=== PATIENT | female | born 1990 | race African-American/Black ===

== ENCOUNTER 2019-05-21 13:40 | Emergency (ER) | payer MEDICAID ==
[~2019-05-21] VITALS: Ht 177.8 cm; Wt 95.0 kg
[2019-05-21] MEDS ORDERED: DEXAMETHASONE 10 MG/ML VIAL IV ONE (16:45)
[2019-05-21] MEDS ORDERED: KETOROLAC 60MG/2ML VIAL IM ONE (16:45)
[2019-05-21 16:48] LABS: CLARITY URINE CLOUDY (CLEAR); COLOR URINE DARK YELLOW (YELLOW); KETONES URINE 1+ (NEGATIVE); LEUKOCYTE ESTERASE URINE NEGATIVE (NEGATIVE); NITRITE URINE NEGATIVE (NEGATIVE); OCCULT BLOOD URINE NEGATIVE (NEGATIVE); PROTEIN URINE TRACE (NEGATIVE); SPECIFIC GRAVITY URINE 1.028 (1.005-1.030)
[2019-05-21 18:14] VITALS: BP 114/65
== END 2019-05-21 18:15 | disposition home or self-care (01) ==
LOC: ER 13:40
DX: N39.0 Urinary tract infection, site not specified (principal); J03.91 Acute recurrent tonsillitis, unspecified
CPT/HCPCS: 81003; 81025; 87070; 87430; 96372; 96374; 99283; J1100; J1885

== ENCOUNTER 2020-03-30 09:59 | Emergency (ER) | payer MEDICAID ==
[~2020-03-30] VITALS: Ht 175.3 cm; Wt 82.0 kg
[2020-03-30] MEDS ORDERED: IBUPROFEN 800MG TABLET PO ONE (10:30)
[2020-03-30 11:33] VITALS: BP 101/61
== END 2020-03-30 11:39 | disposition home or self-care (01) ==
LOC: ER 10:16
DX: S16.1XXA Strain of muscle, fascia and tendon at neck level, initial encounter (principal); S39.012A Strain of muscle, fascia and tendon of lower back, initial encounter; S70.01XA Contusion of right hip, initial encounter; F12.10 Cannabis abuse, uncomplicated; Z88.6 Allergy status to analgesic agent; V49.40XA Driver injured in collision with unspecified motor vehicles in traffic accident, initial encounter; Y93.89 Activity, other specified; Y92.89 Other specified places as the place of occurrence of the external cause; Y99.8 Other external cause status
CPT/HCPCS: 72040; 73502; 81025; 99284

== ENCOUNTER 2020-09-25 08:10 | Emergency (ER) | payer MEDICAID ==
[~2020-09-25] VITALS: Ht 175.3 cm; Wt 79.0 kg
[2020-09-25] MEDS ORDERED: AMOX-424 MT (08:53)
[2020-09-25] MEDS ORDERED: IBUP-2028 MT (08:53)
[2020-09-25] MEDS ORDERED: IBUPROFEN 400MG TABLET PO ONE (09:00)
[2020-09-25 09:02] VITALS: BP 111/69
== END 2020-09-25 09:03 | disposition home or self-care (01) ==
LOC: ER 08:10
DX: H66.91 Otitis media, unspecified, right ear (principal); F12.10 Cannabis abuse, uncomplicated; Z88.6 Allergy status to analgesic agent
CPT/HCPCS: 81025; 99283

== ENCOUNTER 2021-03-11 06:52 | Emergency (ER) | payer MEDICAID ==
[~2021-03-11] VITALS: Ht 177.8 cm; Wt 98.0 kg
[~2021-03-11 06:52] MED LIST: AMOX-424 MT; IBUP-2028 MT
[2021-03-11] MEDS ORDERED: ACETAMINOPHEN 325MG TABLET PO ONE (08:45)
[2021-03-11] MEDS ORDERED: LIDOCAINE 5% PATCH TOP SCH (09:00)
[2021-03-11 10:26] VITALS: BP 113/72
[2021-03-11] MEDS ORDERED: BACL-141 MT (10:29)
[2021-03-11] MEDS ORDERED: ACET-2708 MT (10:29)
[2021-03-11] MEDS ORDERED: IBUP-2029 MT (10:29)
[2021-03-11] MEDS ORDERED: LIDO700A15 TP (10:29)
== END 2021-03-11 11:16 | disposition home or self-care (01) ==
LOC: ER 06:52
DX: S23.41XA Sprain of ribs, initial encounter (principal); R07.81 Pleurodynia; M54.9 Dorsalgia, unspecified; X58.XXXA Exposure to other specified factors, initial encounter; Y93.89 Activity, other specified; Y92.89 Other specified places as the place of occurrence of the external cause; Z88.5 Allergy status to narcotic agent; Z88.8 Allergy status to other drugs, medicaments and biological substances
CPT/HCPCS: 71101; 81025; 99283